=== PATIENT | male | born 1995 | race African-American/Black ===

== ENCOUNTER 2022-03-19 15:54 | Inpatient (IN) | payer OTHER ==
[2022-03-19 16:38] VITALS: BMI 36.1
[2022-03-19] MEDS ORDERED: BENZOCAINE/MENTHOL (CHLORASEPTIC ) LOZENGE MM PRN (17:22)
[2022-03-19] MEDS ORDERED: MAGNESIUM HYDROX 2400MG/30ML ORAL SUSPENSION 30 ML CUP PO PRN (17:22)
[2022-03-19] MEDS ORDERED: IBUPROFEN 400 MG TABLET (FP) PO PRN (17:22)
[2022-03-19] MEDS ORDERED: ACETAMINOPHEN 325 MG TABLET (FP) PO PRN (17:22)
[2022-03-19] MEDS ORDERED: LOPERAMIDE HCL 2 MG CAPSULE PO PRN (17:22)
[2022-03-19] MEDS ORDERED: MAG HYDROX/AL HYDROX/SIMETH 30 ML UNIT-DOSE CUP PO PRN (17:22)
[2022-03-19] MEDS ORDERED: POLYETHYLENE GLYCOL (HEALTHYLAX) 3350 17 GM PACKET PO PRN (17:22)
[2022-03-19] MEDS ORDERED: TUBERCULIN PPD 5 TU/0.1ML VIAL ID ONE ×2 (21:24→21:39)
[2022-03-19] MEDS: MELATONIN 5 MG TABLETS PO SCH (21:28)
[2022-03-19] MEDS: THIAMINE HCL 100 MG TABLET (FP) PO SCH (21:28)
[2022-03-19] MEDS: NICOTINE 7 MG/24 HOURS TOPICAL PATCH TD SCH (21:28)
[2022-03-19] MEDS: PRENATAL VITAMINS W/ FOLIC ACID TABLET (FP) PO SCH (21:28)
[2022-03-20] MEDS: PRENATAL VITAMINS W/ FOLIC ACID TABLET (FP) PO SCH (10:02)
[2022-03-20] MEDS: NICOTINE 7 MG/24 HOURS TOPICAL PATCH TD SCH (10:02)
[2022-03-20] MEDS: NICOTINE 10 MG CARTRIDGE (INHALER) IH PRN (10:04)
[2022-03-20 12:13] LABS: PH,URINE 5.5 (5.0-8.0); URINE APPEARANCE CLEAR; URINE BILIRUBIN NEGATIVE (NEGATIVE); URINE COLOR YELLOW; URINE GLUCOSE (UA) NEGATIVE (NEGATIVE); URINE KETONE NEGATIVE (NEGATIVE); URINE LEUK ESTERASE NEGATIVE (NEGATIVE); URINE NITRITE NEGATIVE (NEGATIVE); URINE PROTEIN NEGATIVE (NEGATIVE); URINE UROBILINOGEN 0.2 mg/dL (0.2-1.0)
[2022-03-20 12:16] LABS: HEMATOCRIT 40.7 % (35.4-49); HEMOGLOBIN 13.3 GM/dL (11.7-16.9); MCH 27.8 pg (25.7-33.7); MCHC 32.6 g/dl (32.0-35.9); MEAN CELL VOLUME 85.5 fl (80-96); MEAN PLT VOLUME 7.5 fl (7.5-11.1); PLATELET COUNT 299 10^3/uL (134-434); RBC 4.76 M/mm3 (4.00-5.60); RDW 14.1 % (11.9-15.9); WHITE BLOOD COUNT 5.1 K/mm3 (4.0-10.0)
[2022-03-20 12:37] LABS: ALBUMIN 3.8 g/dl (3.4-5.0); CALCIUM 9.6 mg/dL (8.5-10.1)
[2022-03-20 12:38] LABS: BLOOD UREA NITROGEN 15.1 mg/dL (7-18)
[2022-03-20 12:41] LABS: CREATININE 0.9 mg/dL (0.55-1.3)
[2022-03-20 12:42] LABS: BILIRUBIN,TOTAL 0.4 mg/dL (0.2-1); TOT PROT 7.4 g/dl (6.4-8.2)
[2022-03-20 12:48] LABS: SYPHILIS W/ RPR CONF NON-REACTIVE (NONREACTIVE)
[2022-03-20] MEDS ORDERED: NICOTINE 7 MG/24 HOURS TOPICAL PATCH TD PRN (13:46)
[2022-03-20] MEDS ORDERED: NICOTINE POLACRILEX 4 MG GUM BUC PRN (13:46)
[2022-03-20] MEDS: BACITRACIN/POLYMYXIN OPH OINT 3.5 GM TUBE OS SCH (21:24)
[2022-03-20] MEDS: MELATONIN 5 MG TABLETS PO SCH (21:24)
[2022-03-20] MEDS: hydrOXYzine PAMOATE 25 MG CAPSULE (FP) PO PRN (21:24)
[2022-03-20] MEDS: THIAMINE HCL 100 MG TABLET (FP) PO SCH (21:24)
[2022-03-20] MEDS: SUVOREXANT 10 MG TABLET PO PRN (21:25)
[2022-03-21] MEDS: PRENATAL VITAMINS W/ FOLIC ACID TABLET (FP) PO SCH (09:36)
[2022-03-21] MEDS: BACITRACIN/POLYMYXIN OPH OINT 3.5 GM TUBE OS SCH ×2 (09:36→21:29)
[2022-03-21] MEDS: MELATONIN 5 MG TABLETS PO SCH (21:28)
[2022-03-21] MEDS: THIAMINE HCL 100 MG TABLET (FP) PO SCH (21:28)
[2022-03-21] MEDS: hydrOXYzine PAMOATE 25 MG CAPSULE (FP) PO PRN (21:29)
[2022-03-21] MEDS: SUVOREXANT 10 MG TABLET PO PRN (21:29)
[2022-03-22] MEDS: PRENATAL VITAMINS W/ FOLIC ACID TABLET (FP) PO SCH (09:46)
[2022-03-22] MEDS: BACITRACIN/POLYMYXIN OPH OINT 3.5 GM TUBE OS SCH ×2 (09:46→21:21)
[2022-03-22] MEDS: MELATONIN 5 MG TABLETS PO SCH (21:21)
[2022-03-22] MEDS: THIAMINE HCL 100 MG TABLET (FP) PO SCH (21:21)
[2022-03-22] MEDS: SUVOREXANT 10 MG TABLET PO PRN (21:22)
[2022-03-22] MEDS: hydrOXYzine PAMOATE 25 MG CAPSULE (FP) PO PRN (21:22)
[2022-03-23] MEDS: BACITRACIN/POLYMYXIN OPH OINT 3.5 GM TUBE OS SCH ×2 (09:58→21:17)
[2022-03-23] MEDS: PRENATAL VITAMINS W/ FOLIC ACID TABLET (FP) PO SCH (09:58)
[2022-03-23] MEDS: MELATONIN 5 MG TABLETS PO SCH (21:17)
[2022-03-23] MEDS: THIAMINE HCL 100 MG TABLET (FP) PO SCH (21:17)
[2022-03-23] MEDS: SUVOREXANT 10 MG TABLET PO PRN (21:18)
[2022-03-24] MEDS: PRENATAL VITAMINS W/ FOLIC ACID TABLET (FP) PO SCH (09:32)
[2022-03-24] MEDS: BACITRACIN/POLYMYXIN OPH OINT 3.5 GM TUBE OS SCH ×2 (09:32→21:20)
[2022-03-24] MEDS: ARTIFICIAL TEARS (POLYVINYL ALCOHOL) OPTH DROPS OU PRN ×2 (09:33→21:19)
[2022-03-24] MEDS: SUVOREXANT 10 MG TABLET PO PRN (21:19)
[2022-03-24] MEDS: MELATONIN 5 MG TABLETS PO SCH (21:19)
[2022-03-24] MEDS: THIAMINE HCL 100 MG TABLET (FP) PO SCH (21:19)
[2022-03-24] MEDS: hydrOXYzine PAMOATE 25 MG CAPSULE (FP) PO PRN (21:19)
[2022-03-25] MEDS: BACITRACIN/POLYMYXIN OPH OINT 3.5 GM TUBE OS SCH ×2 (09:56→21:16)
[2022-03-25] MEDS: PRENATAL VITAMINS W/ FOLIC ACID TABLET (FP) PO SCH (09:56)
[2022-03-25] MEDS: ARTIFICIAL TEARS (POLYVINYL ALCOHOL) OPTH DROPS OU PRN (09:56)
[2022-03-25] MEDS: MELATONIN 5 MG TABLETS PO SCH (21:16)
[2022-03-25] MEDS: THIAMINE HCL 100 MG TABLET (FP) PO SCH (21:16)
[2022-03-25] MEDS: hydrOXYzine PAMOATE 25 MG CAPSULE (FP) PO PRN (21:16)
[2022-03-25] MEDS: SUVOREXANT 10 MG TABLET PO PRN (21:17)
[2022-03-26] MEDS: BACITRACIN/POLYMYXIN OPH OINT 3.5 GM TUBE OS SCH ×2 (09:50→21:11)
[2022-03-26] MEDS: PRENATAL VITAMINS W/ FOLIC ACID TABLET (FP) PO SCH (09:50)
[2022-03-26] MEDS: THIAMINE HCL 100 MG TABLET (FP) PO SCH (21:11)
[2022-03-26] MEDS: hydrOXYzine PAMOATE 25 MG CAPSULE (FP) PO PRN (21:11)
[2022-03-27] MEDS: BACITRACIN/POLYMYXIN OPH OINT 3.5 GM TUBE OS SCH ×2 (09:12→21:28)
[2022-03-27] MEDS: PRENATAL VITAMINS W/ FOLIC ACID TABLET (FP) PO SCH (09:12)
[2022-03-27] MEDS: THIAMINE HCL 100 MG TABLET (FP) PO SCH (21:28)
[2022-03-27] MEDS: hydrOXYzine PAMOATE 25 MG CAPSULE (FP) PO PRN (21:28)
[2022-03-27] MEDS: SUVOREXANT 10 MG TABLET PO PRN (21:29)
[2022-03-28] MEDS: ARTIFICIAL TEARS (POLYVINYL ALCOHOL) OPTH DROPS OU PRN ×2 (09:33→21:04)
[2022-03-28] MEDS: BACITRACIN/POLYMYXIN OPH OINT 3.5 GM TUBE OS SCH ×2 (09:33→21:05)
[2022-03-28] MEDS: PRENATAL VITAMINS W/ FOLIC ACID TABLET (FP) PO SCH (09:33)
[2022-03-28] MEDS: hydrOXYzine PAMOATE 25 MG CAPSULE (FP) PO PRN (21:04)
[2022-03-28] MEDS: THIAMINE HCL 100 MG TABLET (FP) PO SCH (21:04)
[2022-03-28] MEDS: SUVOREXANT 10 MG TABLET PO PRN (21:05)
[2022-03-29] MEDS: BACITRACIN/POLYMYXIN OPH OINT 3.5 GM TUBE OS SCH ×2 (10:02→21:09)
[2022-03-29] MEDS: PRENATAL VITAMINS W/ FOLIC ACID TABLET (FP) PO SCH (10:03)
[2022-03-29] MEDS: THIAMINE HCL 100 MG TABLET (FP) PO SCH (21:10)
[2022-03-29] MEDS: ARTIFICIAL TEARS (POLYVINYL ALCOHOL) OPTH DROPS OU PRN (21:10)
[2022-03-29] MEDS: SUVOREXANT 10 MG TABLET PO PRN (21:11)
[2022-03-30] MEDS: PRENATAL VITAMINS W/ FOLIC ACID TABLET (FP) PO SCH (09:33)
[2022-03-30] MEDS: BACITRACIN/POLYMYXIN OPH OINT 3.5 GM TUBE OS SCH ×2 (09:34→21:27)
[2022-03-30] MEDS: THIAMINE HCL 100 MG TABLET (FP) PO SCH (21:27)
[2022-03-30] MEDS: SUVOREXANT 10 MG TABLET PO PRN (21:27)
[2022-03-30] MEDS: hydrOXYzine PAMOATE 25 MG CAPSULE (FP) PO PRN (21:27)
[2022-03-31] MEDS: PRENATAL VITAMINS W/ FOLIC ACID TABLET (FP) PO SCH (09:43)
[2022-03-31] MEDS: BACITRACIN/POLYMYXIN OPH OINT 3.5 GM TUBE OS SCH ×2 (09:45→21:19)
[2022-03-31] MEDS: THIAMINE HCL 100 MG TABLET (FP) PO SCH (21:18)
[2022-03-31] MEDS: SUVOREXANT 10 MG TABLET PO PRN (21:19)
[2022-04-01] MEDS: BACITRACIN/POLYMYXIN OPH OINT 3.5 GM TUBE OS SCH ×2 (09:35→21:15)
[2022-04-01] MEDS: PRENATAL VITAMINS W/ FOLIC ACID TABLET (FP) PO SCH (09:35)
[2022-04-01] MEDS: SUVOREXANT 10 MG TABLET PO PRN (21:15)
[2022-04-01] MEDS: THIAMINE HCL 100 MG TABLET (FP) PO SCH (21:15)
[2022-04-02] MEDS: BACITRACIN/POLYMYXIN OPH OINT 3.5 GM TUBE OS SCH ×2 (10:19→21:29)
[2022-04-02] MEDS: PRENATAL VITAMINS W/ FOLIC ACID TABLET (FP) PO SCH (10:19)
[2022-04-02] MEDS: THIAMINE HCL 100 MG TABLET (FP) PO SCH (21:29)
[2022-04-02] MEDS: SUVOREXANT 10 MG TABLET PO PRN (21:29)
[2022-04-03] MEDS: BACITRACIN/POLYMYXIN OPH OINT 3.5 GM TUBE OS SCH ×2 (09:35→21:14)
[2022-04-03] MEDS: PRENATAL VITAMINS W/ FOLIC ACID TABLET (FP) PO SCH (09:35)
[2022-04-03] MEDS: THIAMINE HCL 100 MG TABLET (FP) PO SCH (21:14)
[2022-04-03] MEDS: hydrOXYzine PAMOATE 25 MG CAPSULE (FP) PO PRN (21:14)
[2022-04-03] MEDS: SUVOREXANT 10 MG TABLET PO PRN (21:15)
[2022-04-04] MEDS: BACITRACIN/POLYMYXIN OPH OINT 3.5 GM TUBE OS SCH ×2 (09:33→21:12)
[2022-04-04] MEDS: PRENATAL VITAMINS W/ FOLIC ACID TABLET (FP) PO SCH (09:34)
[2022-04-04] MEDS: THIAMINE HCL 100 MG TABLET (FP) PO SCH (21:12)
[2022-04-04] MEDS: SUVOREXANT 10 MG TABLET PO PRN (21:12)
[2022-04-05] MEDS: BACITRACIN/POLYMYXIN OPH OINT 3.5 GM TUBE OS SCH ×2 (10:06→21:11)
[2022-04-05] MEDS: PRENATAL VITAMINS W/ FOLIC ACID TABLET (FP) PO SCH (10:06)
[2022-04-05] MEDS: SUVOREXANT 10 MG TABLET PO PRN (21:11)
[2022-04-05] MEDS: THIAMINE HCL 100 MG TABLET (FP) PO SCH (21:11)
[2022-04-06] MEDS: BACITRACIN/POLYMYXIN OPH OINT 3.5 GM TUBE OS SCH ×2 (09:36→21:21)
[2022-04-06] MEDS: PRENATAL VITAMINS W/ FOLIC ACID TABLET (FP) PO SCH (09:36)
[2022-04-06] MEDS: THIAMINE HCL 100 MG TABLET (FP) PO SCH (21:17)
[2022-04-06] MEDS: SUVOREXANT 10 MG TABLET PO PRN (21:18)
[2022-04-07] MEDS: ARTIFICIAL TEARS (POLYVINYL ALCOHOL) OPTH DROPS OU PRN ×2 (09:25→21:09)
[2022-04-07] MEDS: BACITRACIN/POLYMYXIN OPH OINT 3.5 GM TUBE OS SCH ×2 (09:25→21:08)
[2022-04-07] MEDS: PRENATAL VITAMINS W/ FOLIC ACID TABLET (FP) PO SCH (09:25)
[2022-04-07] MEDS: NICOTINE 10 MG CARTRIDGE (INHALER) IH PRN (15:55)
[2022-04-07] MEDS: hydrOXYzine PAMOATE 25 MG CAPSULE (FP) PO PRN (21:07)
[2022-04-07] MEDS: THIAMINE HCL 100 MG TABLET (FP) PO SCH (21:07)
[2022-04-07] MEDS: SUVOREXANT 10 MG TABLET PO PRN (21:09)
[2022-04-08] MEDS: ARTIFICIAL TEARS (POLYVINYL ALCOHOL) OPTH DROPS OU PRN ×2 (09:41→21:14)
[2022-04-08] MEDS: PRENATAL VITAMINS W/ FOLIC ACID TABLET (FP) PO SCH (09:41)
[2022-04-08] MEDS: BACITRACIN/POLYMYXIN OPH OINT 3.5 GM TUBE OS SCH ×2 (09:41→21:14)
[2022-04-08] MEDS: THIAMINE HCL 100 MG TABLET (FP) PO SCH (21:14)
[2022-04-08] MEDS: SUVOREXANT 10 MG TABLET PO PRN (21:15)
[2022-04-08] MEDS: hydrOXYzine PAMOATE 25 MG CAPSULE (FP) PO PRN (21:15)
[2022-04-09] MEDS: PRENATAL VITAMINS W/ FOLIC ACID TABLET (FP) PO SCH (09:23)
[2022-04-09] MEDS: BACITRACIN/POLYMYXIN OPH OINT 3.5 GM TUBE OS SCH ×2 (09:23→21:10)
[2022-04-09] MEDS: THIAMINE HCL 100 MG TABLET (FP) PO SCH (21:09)
[2022-04-09] MEDS: hydrOXYzine PAMOATE 25 MG CAPSULE (FP) PO PRN (21:09)
[2022-04-09] MEDS: SUVOREXANT 10 MG TABLET PO PRN (21:10)
[2022-04-10] MEDS: BACITRACIN/POLYMYXIN OPH OINT 3.5 GM TUBE OS SCH ×2 (09:34→21:12)
[2022-04-10] MEDS: ARTIFICIAL TEARS (POLYVINYL ALCOHOL) OPTH DROPS OU PRN (09:34)
[2022-04-10] MEDS: PRENATAL VITAMINS W/ FOLIC ACID TABLET (FP) PO SCH (09:34)
[2022-04-10] MEDS: SUVOREXANT 10 MG TABLET PO PRN (21:12)
[2022-04-10] MEDS: THIAMINE HCL 100 MG TABLET (FP) PO SCH (21:12)
[2022-04-11] MEDS: PRENATAL VITAMINS W/ FOLIC ACID TABLET (FP) PO SCH (09:31)
[2022-04-11] MEDS: BACITRACIN/POLYMYXIN OPH OINT 3.5 GM TUBE OS SCH ×2 (09:31→21:27)
[2022-04-11] MEDS: THIAMINE HCL 100 MG TABLET (FP) PO SCH (21:27)
[2022-04-11] MEDS: SUVOREXANT 10 MG TABLET PO PRN (21:27)
[2022-04-12] MEDS: PRENATAL VITAMINS W/ FOLIC ACID TABLET (FP) PO SCH (09:41)
[2022-04-12] MEDS: ARTIFICIAL TEARS (POLYVINYL ALCOHOL) OPTH DROPS OU PRN (09:42)
[2022-04-12] MEDS: BACITRACIN/POLYMYXIN OPH OINT 3.5 GM TUBE OS SCH ×2 (09:42→21:10)
[2022-04-12] MEDS: THIAMINE HCL 100 MG TABLET (FP) PO SCH (21:10)
[2022-04-12] MEDS: SUVOREXANT 10 MG TABLET PO PRN (21:10)
[2022-04-13] MEDS: PRENATAL VITAMINS W/ FOLIC ACID TABLET (FP) PO SCH (09:41)
[2022-04-13] MEDS: BACITRACIN/POLYMYXIN OPH OINT 3.5 GM TUBE OS SCH ×2 (09:41→21:30)
[2022-04-13] MEDS: ARTIFICIAL TEARS (POLYVINYL ALCOHOL) OPTH DROPS OU PRN (09:41)
[2022-04-13] MEDS: THIAMINE HCL 100 MG TABLET (FP) PO SCH (21:30)
[2022-04-13] MEDS: hydrOXYzine PAMOATE 25 MG CAPSULE (FP) PO PRN (21:30)
[2022-04-13] MEDS: SUVOREXANT 10 MG TABLET PO PRN (21:30)
[2022-04-14] MEDS: PRENATAL VITAMINS W/ FOLIC ACID TABLET (FP) PO SCH (09:54)
[2022-04-14] MEDS: BACITRACIN/POLYMYXIN OPH OINT 3.5 GM TUBE OS SCH ×2 (09:54→21:23)
[2022-04-14] MEDS: THIAMINE HCL 100 MG TABLET (FP) PO SCH (21:22)
[2022-04-14] MEDS: SUVOREXANT 10 MG TABLET PO PRN (21:22)
[2022-04-15] MEDS: NICOTINE 10 MG CARTRIDGE (INHALER) IH PRN (07:05)
[2022-04-15] MEDS: PRENATAL VITAMINS W/ FOLIC ACID TABLET (FP) PO SCH (09:56)
[2022-04-15] MEDS: BACITRACIN/POLYMYXIN OPH OINT 3.5 GM TUBE OS SCH ×2 (09:56→21:05)
[2022-04-15] MEDS: SUVOREXANT 10 MG TABLET PO PRN (21:04)
[2022-04-15] MEDS: THIAMINE HCL 100 MG TABLET (FP) PO SCH (21:05)
[2022-04-16] MEDS: PRENATAL VITAMINS W/ FOLIC ACID TABLET (FP) PO SCH (09:36)
[2022-04-16] MEDS: BACITRACIN/POLYMYXIN OPH OINT 3.5 GM TUBE OS SCH ×2 (09:36→21:16)
[2022-04-16] MEDS: ARTIFICIAL TEARS (POLYVINYL ALCOHOL) OPTH DROPS OU PRN (09:37)
[2022-04-16] MEDS: THIAMINE HCL 100 MG TABLET (FP) PO SCH (21:15)
[2022-04-17 06:30] VITALS: BP 134/86; PULSE 77; RESP 18; TEMP 97.5
[2022-04-17] MEDS: PRENATAL VITAMINS W/ FOLIC ACID TABLET (FP) PO SCH (09:33)
[2022-04-17] MEDS: BACITRACIN/POLYMYXIN OPH OINT 3.5 GM TUBE OS SCH (09:33)
== END 2022-04-17 10:20 | disposition home or self-care (01) | DRG 772 ==
LOC: YASAS 15:54 → Y3E 20:30
PROVIDERS: ADMIT Allergy & Immunology; ATTEND Psychiatry & Neurology Pain Medicine
PROC: HZ42ZZZ Group Counseling for Substance Abuse Treatment, Cognitive-Behavioral (ICD-10-PCS; principal; 2022-03-19)
DX: F10.20 Alcohol dependence, uncomplicated (principal); F14.20 Cocaine dependence, uncomplicated; F12.20 Cannabis dependence, uncomplicated; F17.210 Nicotine dependence, cigarettes, uncomplicated; F19.282 Other psychoactive substance dependence with psychoactive substance-induced sleep disorder; F41.9 Anxiety disorder, unspecified; I10 Essential (primary) hypertension; S01.81XD Laceration without foreign body of other part of head, subsequent encounter; S01.111D Laceration without foreign body of right eyelid and periocular area, subsequent encounter; X99.0XXD Assault by sharp glass, subsequent encounter
CPT/HCPCS: 36415; 80053; 81003; 82962; 85027; 86780; 86803; C9803-CS; U0003; U0005